=== PATIENT | male | born 1985 | race Hispanic/Latino ===

== ENCOUNTER 2016-07-03 16:39 | Emergency (ER) | payer OTHER ==
--- NOTE | 2016-07-03 17:21 | ED PDOC ---
HPI: General Adult Time Seen by Provider: 07/03/16 17:02 Chief Complaint (Nursing): Abdominal Pain Chief Complaint (Provider): Constipation History Per: Patient History/Exam Limitations: no limitations Onset/Duration Of Symptoms: Days (x3) Current Symptoms Are (Timing): Still Present Additional Complaint(s): 30 year old male presents to ED with complaints of constipation x3 days. Notes that he attempted to have a bowel movement today and feels a hard piece of stool coming out but is unable to get it out. States that he used his finger and a baby wipe to attempt to break the piece up but could not. (+) bloating, (- ) abdominal pain, nausea, vomiting, or decreased appetite. Patient states that he has never experienced this before and is not taking any medications. PCP: Marylu Ortiz Past Medical History Reviewed: Historical Data, Nursing Documentation, Vital Signs Vital Signs: Last Vital Signs Temp 98.0 F 07/03/16 16:45 Pulse 76 07/03/16 16:45 Resp 16 07/03/16 16:45 BP 141/95 H 07/03/16 16:45 Pulse Ox 100 07/03/16 16:45 - Allergies Allergies/Adverse Reactions: Allergies Allergy/AdvReac Type Severity Reaction Status Date / Time Penicillins Allergy RASH Verified 07/03/16 16:45 Review of Systems ROS Statement: Except As Marked, All Systems Reviewed And Found Negative - ECG O2 Sat by Pulse Oximetry: 100
--- NOTE | 2016-07-03 17:29 | ED PDOC ---
HPI: General Adult Time Seen by Provider: 07/03/16 17:02 Chief Complaint (Nursing): Abdominal Pain Chief Complaint (Provider): Constipation History Per: Patient History/Exam Limitations: no limitations Onset/Duration Of Symptoms: Days (x3) Current Symptoms Are (Timing): Still Present Additional Complaint(s): 30 year old male presents to ED with complaints of constipation x3 days. Notes that he attempted to have a bowel movement today and feels a hard piece of stool coming out but is unable to get it out. States that he used his finger and a baby wipe to attempt to break the piece up but could not. (+) bloating, (- ) abdominal pain, nausea, vomiting, or decreased appetite. Patient states that he has never experienced this before and is not taking any medications. PCP: Marylu Ortiz Past Medical History Reviewed: Historical Data, Nursing Documentation, Vital Signs Vital Signs: Last Vital Signs Temp 98.0 F 07/03/16 16:45 Pulse 76 07/03/16 16:45 Resp 16 07/03/16 16:45 BP 141/95 H 07/03/16 16:45 Pulse Ox 100 07/03/16 17:29 - Family History Family History: States: No Known Family Hx - Allergies Allergies/Adverse Reactions: Allergies Allergy/AdvReac Type Severity Reaction Status Date / Time Penicillins Allergy RASH Verified 07/03/16 16:45 Review of Systems ROS Statement: Except As Marked, All Systems Reviewed And Found Negative Gastrointestinal: Positive for: Constipation. Negative for: Nausea, Vomiting, Abdominal Pain Physical Exam - Reviewed Nursing Documentation Reviewed: Yes Vital Signs Reviewed: Yes - Physical Exam Appears: Positive for: Non-toxic, No Acute Distress Skin: Positive for: Normal Color, Warm, Dry Eye Exam: Positive for: Normal appearance ENT: Positive for: Normal ENT Inspection Neck: Positive for: Normal Respiratory: Negative for: Respiratory Distress Gastrointestinal/Abdominal: Positive for: Normal Exam, Soft. Negative for: Tenderness Extremity: Positive for: Normal ROM. Negative for: Deformity Neurologic/Psych: Positive for: Alert, Oriented. Negative for: Motor/Sensory Deficits - ECG O2 Sat by Pulse Oximetry: 100 (RA) Pulse Ox Interpretation: Normal Medical Decision Making Medical Decision Makin Initial impression: constipation Initial plan: Enema (+) BM in ER. PT reports feeling much better. Scribe Attestation: Documented by Venessa Nina acting as a scribe for America Stallworth PA-C. Scribe Attestation: All medical record entries made by the Scribe were at my direction and personally dictated by me. I have reviewed the chart and agree that the record accurately reflects my personal performance of the history, physical exam, medical decision making, and the department course for this patient. I have also personally directed, reviewed, and agree with the discharge instructions and disposition. Disposition - Clinical Impression Clinical Impression: Constipation - Patient ED Disposition Is Patient to be Admitted: No Counseled Patient/Family Regarding: Diagnosis, Need For Followup - Disposition Disposition: Routine/Home Disposition Time: 20:23 Condition: GOOD Instructions: Constipation (ED)
[2016-07-04 03:16] VITALS: BP 136/72; PULSE 81; RESP 17; TEMP 98.7; O2SAT 99
== END 2016-07-03 20:28 | disposition home or self-care (01) ==
LOC: H.ER 16:39
DX: K59.00 Constipation, unspecified (principal); R10.9 Unspecified abdominal pain